=== PATIENT | male | born 1990 | race Caucasian/White ===

== ENCOUNTER 2017-02-12 00:04 | Emergency (ER) | payer SELFPAY ==
[~2017-02-12] VITALS: Ht 185.4 cm; Wt 104.0 kg
[2017-02-12 00:13] VITALS: Ht 185.4 cm; Wt 104.0 kg
[2017-02-12] MEDS ORDERED: DIAZEPAM 5 MG/ML SYG IM ONE (03:00)
--- NOTE | 2017-02-12 03:14 | ERD ---
ER Documentation Chief Complaint Date/Time DATE: 02/12/17 TIME: 03:13 Chief Complaint he yawned & suddenly locked his jaw HPI 26-year-old male presents here in emergency department for complaints of lockjaw of bilateral TMJ after yawning. Patient always had problems with his TMJ , he re-on today, it got stuck. Patient's complaining of when the biliary pain jaw pain sharp pain 4/10 scale, and able to completely close the mouth. Patient did not take any medications to symptoms. ROS All systems reviewed and are negative except as per history of present illness. Medications Home Meds Active Scripts Diazepam* (Valium*) 5 Mg Tablet, 5 MG PO Q8 Y for MUSCLE SPASMS, #15 TAB Prov:NIMCO FERRARO NP 02/12/17 Ibuprofen* (Motrin*) 600 Mg Tab, 600 MG PO Q6H Y for PAIN AND OR ELEVATED TEMP, #30 TAB Prov:NIMCO FERRARO NP 02/12/17 Reported Medications [none] Unknown Strength No Conflict Check 02/12/17 Allergies Allergies: Coded Allergies: No Known Allergy (Unverified , 02/12/17) PMhx/Soc Medical and Surgical Hx: pt denies Medical Hx, pt denies Surgical Hx History of Surgery: No Anesthesia Reaction: No Hx Neurological Disorder: No Hx Respiratory Disorders: No Hx Cardiac Disorders: No Hx Psychiatric Problems: No Hx Miscellaneous Medical Probl: Yes (TMJ) Hx Alcohol Use: No Hx Substance Use: No Hx Tobacco Use: No Smoking Status: Never smoker FmHx Family History: No coronary disease, No diabetes, No other Physical Exam Vitals Vital Signs Date Time Temp Pulse Resp B/P Pulse Ox O2 Delivery O2 Flow Rate FiO2 02/12/17 00:13 98.2 100 20 138/70 96 Physical Exam GENERAL: The patient is well developed and appropriate for usual state of health, in no apparent distress. CHEST: Clear to auscultation bilaterally. There are no rales, wheezes or rhonchi. HEART: Regular rate and rhythm. No murmurs, clicks, rubs or gallops. No S3 or S4. ABDOMEN: Soft, nontender and nondistended. Good bowel sounds. No rebound or guarding. No gross peritonitis. No gross organomegaly or masses. No Briceño sign or McBurney point tenderness. BACK: No midline or flank tenderness. EXTREMITIES: Equal pulses bilaterally. There is no peripheral clubbing, cyanosis or edema. No focal swelling or erythema. Full range of motion. Grossly neurovascularly intact. NEURO: Alert and oriented. Cranial nerves 2-12 intact. Motor strength in all 4 extremities with 5/5 strength. Sensation grossly intact. Normal speech and gait. SKIN: There is no apparent rash or petechia. The skin is warm and dry. HEMATOLOGIC AND LYMPHATIC: There is no evidence of excessive bruising or lymphedema. No gross cervical, axillary, or inguinal lymphadenopathy. Results 24 hrs Current Medications Medications (Trade) Dose Ordered Sig/Samara Route PRN Reason Start Time Stop Time Status Last Admin Dose Admin Diazepam (Valium) 5 mg ONCE ONCE IM 02/12/17 03:00 02/12/17 03:01 DC 02/12/17 02:51 Valium was given here in the ER PROCEDURE: CT facial bones CLINICAL INDICATION: mandiular joint pain and stuck after yawing TECHNIQUE: A CT of the facial bones was performed on a GE 64-slice CT scanner utilizing high-resolution axial images. Sagittal, coronal, and multiplanar reformatted images were made. The CTDIvol is 29.56 mGy and the DLP is 664.08 mGy-cm. COMPARISON: None. FINDINGS: The study was performed of the patient's mouth open. There is evidence of bilateral anterior temporomandibular joint subluxation, greater on the right.. The mandible is intact. The orbital bones and contents are normal. The paranasal sinuses and mastoids are well pneumatized. There is mild mucosal thickening in the left sphenoid, bilateral frontal, ethmoid and maxillary sinuses. No air-fluid level is seen. A few enlarged submandibular lymph nodes are seen. No significant soft tissue swelling is visualized. IMPRESSION: Bilateral anterior TMJ subluxation or hypermobility. MRI of the temporomandibular joints is recommended. Mild chronic sinusitis. RPTAT: HCNS Physician Deneen Date Time Electronically viewed and signed by Physician Deneen on 02/12/2017 04: 10 CS/ CC: NIMCO FERRARO NP PROCEDURE: X-ray TMJ CLINICAL INDICATION: Subluxation status post reduction TECHNIQUE: Five images of the mandible and facial bones including the TMJ are available for review. Open mouth and closed mouth views were obtained. COMPARISON: None available FINDINGS: Patient positioning limits evaluation. No gross dislocation is seen. No other bony osseous abnormality is seen. The paranasal sinuses are clear. IMPRESSION: Patient positioning limits evaluation. No gross dislocation is seen. Consider CT or MRI for further evaluation, as clinically indicated. RPTAT: HH .Gretchen Sharma MD, MD Date Time Electronically viewed and signed by .Gretchen Sharma MD, MD on 02/12/2017 06 :04 .G/ CC: NIMCO FERRARO NP Procedures/MDM Procedure note: After patient's verbal consent, patient was given IM Valium to relax the muscles, after giving the Valium, patient's subluxated TMJ was reduced back in place, afterwards, patient is able to open and close her mouth without any difficulty. Medical decision making: Patient had subluxated TMJ, it was reduced back in place, now patient's able to open and close the mouth. Patient does not have any fracture. Patient did not have any trauma on affected area. Rx: Valium Instructions: Patient was advised to follow-up with ENT specialist in the next 1 -2 days for further evaluation and management, patient is advised to return to emergency department for worsening symptoms. Disposition: Home. Stable. Departure Diagnosis: Primary Impression: TMJ (dislocation of temporomandibular joint) Encounter type: initial encounter Qualified Code: S03.00XA - Dislocation of temporomandibular joint, initial encounter Condition: Stable Patient Instructions: Tmj Syndrome NIMCO FERRARO NP Feb 12, 2017 03:14
--- NOTE | 2017-02-12 04:11 | RADRPT ---
PROCEDURE: CT facial bones CLINICAL INDICATION: mandiular joint pain and stuck after yawing TECHNIQUE: A CT of the facial bones was performed on a GE 64-slice CT scanner utilizing high-resol ution axial images. Sagittal, coronal, and multiplanar reformatted images were made. The CTDIvol is 29.56 mGy and the DLP is 664.08 mGy-cm. COMPARISON: None. FINDINGS: The study was performed of the patient's mouth open. There is evidence of bilateral anterior temporo mandibular joint subluxation, greater on the right.. The mandible is intact. The orbital bones and contents are normal. The paranasal sinuses and mastoids are well pneumatized. There is mild mucosal thickening in the left sphenoid, bilateral frontal, ethmoid and maxillary sinuses. No air-fluid le babar is seen. A few enlarged submandibular lymph nodes are seen. No significant soft tissue swellin g is visualized. IMPRESSION: Bilateral anterior TMJ subluxation or hypermobility. MRI of the temporomandibular joints is recommen ded. Mild chronic sinusitis. RPTAT: HCNS Physician Deneen Date Time Electronically viewed and signed by Physician Deneen on 02/12/2017 04:10 /
[2017-02-12] MEDS ORDERED: DIAZ-90 PO (05:48)
[2017-02-12] MEDS ORDERED: IBUP-1542 PO (05:48)
--- NOTE | 2017-02-12 06:05 | RADRPT ---
PROCEDURE: X-ray TMJ CLINICAL INDICATION: Subluxation status post reduction TECHNIQUE: Five images of the mandible and facial bones including the TMJ are available for review . Open mouth and closed mouth views were obtained. COMPARISON: None available FINDINGS: Patient positioning limits evaluation. No gross dislocation is seen. No other bony osseous abnormal ity is seen. The paranasal sinuses are clear. IMPRESSION: Patient positioning limits evaluation. No gross dislocation is seen. Consider CT or MRI for furthe r evaluation, as clinically indicated. RPTAT: HH .Gretchen Sharma MD, MD Date Time Electronically viewed and signed by .Gretchen Sharma MD, MD on 02/12/2017 06:04 .Becky/
== END 2017-02-12 06:33 | disposition home or self-care (01) ==
LOC: FTE 00:04
DX: S03.00XA Dislocation of jaw, unspecified side, initial encounter (principal); X58.XXXA Exposure to other specified factors, initial encounter; Y92.9 Unspecified place or not applicable
CPT/HCPCS: 70110; 70486; 96372; 99285; J3360